=== PATIENT | female | born 1960 | race Caucasian/White ===

== ENCOUNTER 2016-12-08 13:35 | Emergency (ER) | payer OTHER ==
[2016-12-08 13:54] VITALS: BP 113/67
--- NOTE | 2016-12-08 14:37 | RAD ---
INDICATION: Right ankle injury. TECHNIQUE: 3 views of the right ankle were obtained. FINDINGS: There is anterolateral soft tissue swelling. There is a nondisplaced fracture through the tip of the lateral malleolus. No other acute fractures are seen. There appears be an old avulsion fracture fragment arising from the dorsal navicular bone. IMPRESSION: NONDISPLACED FRACTURE OF THE TIP OF THE LATERAL MALLEOLUS.
--- NOTE | 2016-12-08 16:41 | UC ---
Lower Extremity/Ankle HPI - HPI Summary HPI Summary: INVERSION INJURY TO RIGHT ANKLE LAST NIGHT, TODAY SWELLING AND BRUISING TO RIGHT ROOT AND ANKLE - History of Current Complaint Chief Complaint: UCLowerExtremity Stated Complaint: ANKLE INJURY Time Seen by Provider: 12/08/16 14:04 Hx Obtained From: Patient Onset/Duration: Sudden Onset, Lasting Hours Severity Initially: Moderate Severity Currently: Mild Pain Intensity: 2 Pain Scale Used: 0-10 Numeric Aggravating Factor(s): Standing, Ambulation Alleviating Factor(s): Elevation Able to Bear Weight: Yes - Risk Factors Gout Risk Factors: Negative DVT Risk Factors: Negative Septic Arthritis Risk Factor: Negative - Allergies/Home Medications Allergies/Adverse Reactions: Allergies Allergy/AdvReac Type Severity Reaction Status Date / Time Penicillins Allergy Rash Verified 12/08/16 13:51 Home Medications: Home Medications Escitalopram (NF) [Lexapro 5 mg (NF)] 5 mg PO DAILY 12/08/16 [History Confirmed 12/08/16] PMH/Surg Hx/FS Hx/Imm Hx Previously Healthy: Yes - Surgical History Surgical History: None - Family History Known Family History: Negative: Blood Disorder - Social History Occupation: Employed Full-time Lives: With Family Alcohol Use: Occasionally Substance Use Type: None Smoking Status (MU): Never Smoked Tobacco - Immunization History Most Recent Tetanus Shot: 03/2012 Review of Systems Constitutional: Negative Skin: Bruising Eyes: Negative ENT: Negative Respiratory: Negative Cardiovascular: Negative Gastrointestinal: Negative Genitourinary: Negative Motor: Negative Neurovascular: Negative Musculoskeletal: Arthralgia, Edema, Myalgia Neurological: Negative Psychological: Negative Is Patient Immunocompromised?: No All Other Systems Reviewed And Are Negative: Yes Physical Exam Triage Information Reviewed: Yes Appearance: Well-Appearing, No Pain Distress, Well-Nourished Vital Signs: Initial Vital Signs Temp 97.8 F 12/08/16 13:51 Pulse 65 12/08/16 13:51 Resp 18 12/08/16 13:51 BP 113/67 12/08/16 13:51 Pulse Ox 96 12/08/16 13:51 Vital Signs Reviewed: Yes Eye Exam: Normal ENT Exam: Normal ENT: Positive: Normal ENT inspection, TMs normal Dental Exam: Normal Neck exam: Normal Neck: Positive: Supple, Nontender, No Lymphadenopathy Respiratory Exam: Normal Respiratory: Positive: Chest non-tender, Lungs clear, Normal breath sounds, No respiratory distress, No accessory muscle use Cardiovascular Exam: Normal Cardiovascular: Positive: RRR, No Murmur Abdominal Exam: Normal Musculoskeletal: Positive: Strength Limited @ - RIGHT ANKLE, ROM Limited @ - RIGHT ANKLE, Edema @ - RIGHT ANKLE Neurological Exam: Normal Psychological Exam: Normal Skin Exam: Normal Lower Extremity Course/Dx - Differential Dx/Diagnosis Differential Diagnosis/HQI/PQRI: Fracture (Closed), Sprain, Strain Provider Diagnoses: CLOSED NONDISPLACED FRACTURE TO TIP OF RIGHT LATERAL MALLEOLUS Discharge - Discharge Plan Condition: Stable Disposition: HOME Patient Education Materials: Ankle Fracture (ED) Forms: *Work Release Referrals: Segun Rebollar MD [Medical Doctor] - Vonnie Briceño NP [Primary Care Provider] -
== END 2016-12-08 15:15 | disposition home or self-care (01) ==
LOC: UCEAST 13:35
DX: S82.64XA Nondisplaced fracture of lateral malleolus of right fibula, initial encounter for closed fracture (principal); X50.0XXA Overexertion from strenuous movement or load, initial encounter; Y93.9 Activity, unspecified; Y92.9 Unspecified place or not applicable; Y99.9 Unspecified external cause status
CPT/HCPCS: 99213; G0463